=== PATIENT | male | born 1970 | race Caucasian/White ===

== ENCOUNTER 2016-12-25 08:48 | Day surgery (SDC) | payer OTHER ==
[~2016-12-25] VITALS: Ht 182.9 cm; Wt 108.9 kg
[~2016-12-25 08:48] MED LIST: CYCLOBENZAPRINE10 MG PO; FIORICET,ESG1 TABLET PO; IBUPROFEN800 MG PO; LISINOPRIL5 MG PO; LYRICA100 MG PO; OMEPRAZOLE40 M1 PO; SIMVASTATIN20 MG PO; TRAMADOL HCL50 MG PO; TRAZODONE HCL150 MG PO
[2016-12-25 09:10] LABS: POINT-OF-CARE METER ID UU14174212
== END 2016-12-25 10:28 | disposition home or self-care (01) ==
LOC: PAIN 08:48 → SDC 09:15 → PAIN 10:28
PROVIDERS: Anesthesiology Pain Medicine
DX: M47.816 Spondylosis without myelopathy or radiculopathy, lumbar region (principal); F41.9 Anxiety disorder, unspecified; R26.2 Difficulty in walking, not elsewhere classified; G89.29 Other chronic pain; M25.512 Pain in left shoulder; J45.909 Unspecified asthma, uncomplicated; I10 Essential (primary) hypertension; Z87.891 Personal history of nicotine dependence; Z88.8 Allergy status to other drugs, medicaments and biological substances
CPT/HCPCS: 82948; J1030; S0020

== ENCOUNTER 2017-01-01 08:20 | Day surgery (SDC) | payer OTHER ==
[~2017-01-01] VITALS: Ht 182.9 cm; Wt 108.9 kg
[2017-01-01 08:43] LABS: POINT-OF-CARE METER ID UU14174212
== END 2017-01-01 09:46 | disposition home or self-care (01) ==
LOC: PAIN 08:20 → SDC 09:15 → PAIN 09:15
PROVIDERS: Anesthesiology Pain Medicine
DX: M47.816 Spondylosis without myelopathy or radiculopathy, lumbar region (principal); M54.5 Low back pain; G89.29 Other chronic pain; M54.2 Cervicalgia; I10 Essential (primary) hypertension; J45.909 Unspecified asthma, uncomplicated; K21.9 Gastro-esophageal reflux disease without esophagitis; M25.512 Pain in left shoulder; M25.561 Pain in right knee; Z87.891 Personal history of nicotine dependence; Z79.891 Long term (current) use of opiate analgesic; Z79.899 Other long term (current) drug therapy; R26.9 Unspecified abnormalities of gait and mobility
CPT/HCPCS: 82948; J1030; J2250; J3010; S0020

== ENCOUNTER 2017-07-18 09:40 | Day surgery (SDC) | payer OTHER ==
[~2017-07-18] VITALS: Ht 182.9 cm; Wt 108.8 kg
== END 2017-07-18 11:50 | disposition home or self-care (01) ==
LOC: PAIN 09:40 → SDC 10:30 → PAIN 10:30
DX: M47.816 Spondylosis without myelopathy or radiculopathy, lumbar region (principal); M54.5 Low back pain; G89.29 Other chronic pain; M54.2 Cervicalgia; I10 Essential (primary) hypertension; K21.9 Gastro-esophageal reflux disease without esophagitis; Z87.891 Personal history of nicotine dependence; Z79.891 Long term (current) use of opiate analgesic
CPT/HCPCS: J1030; J2250; J3010; S0020

== ENCOUNTER 2017-08-01 09:35 | Day surgery (SDC) | payer OTHER ==
[~2017-08-01] VITALS: Ht 182.9 cm; Wt 108.8 kg
== END 2017-08-01 11:30 | disposition home or self-care (01) ==
LOC: PAIN 09:35 → SDC 10:30 → PAIN 10:30
PROVIDERS: Anesthesiology Pain Medicine
PROC: 3E0T3TZ Introduction of Destructive Agent into Peripheral Nerves and Plexi, Percutaneous Approach (ICD-10-PCS; principal; 2017-08-01)
PROC: BR161ZZ Fluoroscopy of Lumbar Facet Joint(s) using Low Osmolar Contrast (ICD-10-PCS; principal; 2017-08-01)
DX: M47.816 Spondylosis without myelopathy or radiculopathy, lumbar region (principal); M54.5 Low back pain; G89.29 Other chronic pain; I10 Essential (primary) hypertension; M54.2 Cervicalgia; M25.511 Pain in right shoulder; M25.512 Pain in left shoulder; E11.9 Type 2 diabetes mellitus without complications; Z87.891 Personal history of nicotine dependence; Z79.891 Long term (current) use of opiate analgesic
CPT/HCPCS: 82948; J1030; J2250; J3010; S0020